=== PATIENT | male | born 1975 | race Hispanic/Latino ===

== ENCOUNTER 2017-02-18 20:01 | Emergency (ER) | payer MEDICAID ==
[2017-02-18 20:18] VITALS: BMI 32.5
[2017-02-18 20:23] VITALS: RESP 20; TEMP 98.2; O2SAT 98
[2017-02-18] MEDS ORDERED: Sodium Chloride 0.9% 1,000 ML IV STA (20:49)
--- NOTE | 2017-02-18 21:07 | ED PDOC ---
Arrival/HPI - General Chief Complaint: Back Pain Time Seen by Provider: 02/18/17 20:26 Historian: Patient - History of Present Illness Narrative History of Present Illness (Text): 02/18/17 21:00 Aubrey Cornell is a 40 year old male, with a history of alcohol abuse and heroine use, presents to the emergency department complaining of lower back pain radiating to the right leg. Patient states the symptoms began this evening. He notes there is discomfort when ambulating, but denies any trauma. Patient also states his right leg near his lower calf felt numb with a burning sensation. Patient denies fall, chest pain, shortness of breath, headache, fever , chills, cough, nausea, vomiting, diarrhea, bowel or bladder incontinence/ retention, hematuria or dysuria. Time/Duration: 1-3 hours Symptom Onset: Sudden Symptom Course: Unchanged Quality: Burning, Other (numbness on lower calf) Activities at Onset: Light Modifying Factors (Text): discomfort when ambulating Context: Sitting Associated Symptoms (Text): numbness on leg Past Medical History - Provider Review Nursing Documentation Reviewed: Yes - Infectious Disease Hx of Infectious Diseases: None - Cardiac Hx Cardiac Disorders: No - Pulmonary Hx Respiratory Disorders: No - Neurological Hx Neurological Disorder: No - HEENT Hx HEENT Disorder: No - Renal Hx Renal Disorder: No - Endocrine/Metabolic Hx Endocrine Disorders: No - Hematological/Oncological Hx Blood Disorders: No - Integumentary Hx Dermatological Disorder: No - Musculoskeletal/Rheumatological Hx Musculoskeletal Disorders: Yes Hx Back Pain: Yes - Gastrointestinal Hx Gastrointestinal Disorders: No - Genitourinary/Gynecological Hx Genitourinary Disorders: No - Psychiatric Hx Psychophysiologic Disorder: No Hx Substance Use: No - Surgical History Hx Cholecystectomy: Yes (2009) - Anesthesia Hx Anesthesia: Yes Hx Anesthesia Reactions: No Hx Malignant Hyperthermia: No Family/Social History - Physician Review Nursing Documentation Reviewed: Yes Family/Social History: Unknown Family HX Smoking Status: Heavy Smoker > 10 Cigarettes Daily Hx Alcohol Use: Yes Frequency of alcohol use: Socially Hx Substance Use: No Allergies/Home Meds Allergies/Adverse Reactions: Allergies No Known Allergies Allergy (Verified 02/18/17 20:18) Review of Systems - Physician Review All systems were reviewed & negative as marked: Yes - Review of Systems Constitutional: absent: Fevers Respiratory: absent: SOB Cardiovascular: absent: Chest Pain Gastrointestinal: absent: Abdominal Pain Musculoskeletal: Back Pain, Other (radiates to right leg) Neurological: absent: Headache Physical Exam Vital Signs Temp Pulse Resp BP Pulse Ox 02/19/17 00:45 89 20 137/82 98 02/18/17 20:21 98.2 F 83 20 146/96 H 98 Temperature: Afebrile Blood Pressure: Hypertensive Pulse: Regular Respiratory Rate: Normal Appearance: Positive for: Well-Appearing, Non-Toxic, Comfortable Pain Distress: None Mental Status: Positive for: Alert and Oriented X 3 - Systems Exam Head: Present: Atraumatic, Normocephalic Pupils: Present: PERRL Extroacular Muscles: Present: EOMI Conjunctiva: Present: Normal Mouth: Present: Moist Mucous Membranes Neck: Present: Normal Range of Motion Respiratory/Chest: Present: Clear to Auscultation, Good Air Exchange. No: Respiratory Distress, Accessory Muscle Use Cardiovascular: Present: Regular Rate and Rhythm, Normal S1, S2. No: Murmurs Abdomen: Present: Normal Bowel Sounds, Other (soft non-tender). No: Tenderness , Distention, Peritoneal Signs Back: Present: Normal Inspection, Pain with Leg Raise (lower back discomfort with right leg raising). No: CVA Tenderness, Midline Tenderness, Paraspinal Tenderness Upper Extremity: Present: Normal Inspection. No: Cyanosis, Edema Lower Extremity: Present: Normal Inspection, NORMAL PULSES, Neurovascularly Intact. No: Edema, CALF TENDERNESS, Brittany's Sign Neurological: Present: GCS=15, CN II-XII Intact, Speech Normal, Motor Func Grossly Intact, Normal Sensory Function Skin: Present: Warm, Dry, Normal Color. No: Rashes Psychiatric: Present: Alert, Oriented x 3, Normal Insight, Normal Concentration Medical Decision Making ED Course and Treatment: 02/18/17 21:00 Impression: 41 year old male with lower back pain that radiates down the right leg. Plan: -- CT Lumbar Spine -- Ultrasound -- Labs -- Toradol and Sodium Chloride -- Reassess and disposition Progress Notes: 02/18/17 21:20 Ultrasound Lower Extremity: Creator : Xander Scott MD FINDINGS: The visualized deep venous systems of both lower extremities are sonographically normal and compressible. Normal wave forms and augmentation are seen. There is no sonographic evidence for deep venous thrombosis in the visualized segments of both lower extremities. IMPRESSION: No sonographic evidence for deep venous thrombosis in the visualized segments of both lower extremities. 02/19/17 00:20 CT Lumbar Spine With Intravenous Contrast FINDINGS: Vertebrae: Unremarkable. No acute fracture. Discs/spinal canal/neural foramina: A broad-based disc protrusion is identified at the level L3/L4, with mass effect on both the spinal canal and bilateral neural foramen (right greater than left). A right paracentral disc protrusion is identified at the level of L4/L5, with mass effect on both the spinal canal and bilateral neural foramen (right greater than left) Soft tissues: Unremarkable. IMPRESSION: Degenerative disease at the levels of L3/L4 and L4/L5, as detailed above. - Lab Interpretations Lab Results: 02/18/17 22:06 02/18/17 22:06 Lab Results 02/18/17 22:06: Sodium 141, Potassium 4.2, Chloride 99, Carbon Dioxide 31, Anion Gap 15, BUN 11, Creatinine 0.9, Est GFR ( Amer) > 60, Est GFR (Non- Af Amer) > 60, Random Glucose 90, Calcium 9.7 02/18/17 22:06: WBC 14.5 H, RBC 4.68, Hgb 14.7, Hct 42.0, MCV 89.7, MCH 31.4, MCHC 35.0, RDW 13.2, Plt Count 282, MPV 9.3 I have reviewed the lab results: Yes - RAD Interpretation Radiology Orders: 02/18/17 20:46 DUPLEX LOWER EXTRM VEIN BILAT [US] Stat 02/18/17 20:47 LUMBAR SPINE W/CONTRAST [CT] Stat Dance Coach: Radiologist - Medication Orders Current Medication Orders: Discontinued Medications Sodium Chloride (Sodium Chloride 0.9%) 1,000 mls @ 999 mls/hr IV .Q1H1M STA Stop: 02/18/17 21:49 Last Admin: 02/18/17 21:20 Dose: 999 mls/hr Iohexol (Omnipaque 350 100 Ml) Confirm Administered Dose 350 mg .ROUTE .STK-MED ONE Stop: 02/18/17 22:47 Ketorolac Tromethamine (Toradol) 30 mg IVP ONCE ONE Stop: 02/18/17 20:50 Last Admin: 02/18/17 21:20 Dose: 30 mg - Scribe Statement The provider has reviewed the documentation as recorded by the Scribe 02/18/2017 Yesica Rasmussen Attestation: All medical record entries made by the Scribe were at my direction and personally dictated by me. I have reviewed the chart and agree that the record accurately reflects my personal performance of the history, physical exam, medical decision making, and the department course for this patient. I have also personally directed, reviewed, and agree with the discharge instructions and disposition. Disposition/Present on Arrival - Present on Arrival Any Indicators Present on Arrival: No History of DVT/PE: No History of Uncontrolled Diabetes: No Urinary Catheter: No History of Decub. Ulcer: No History Surgical Site Infection Following: None - Disposition Have Diagnosis and Disposition been Completed?: Yes Diagnosis: Lumbar disc herniation with radiculopathy Disposition: HOME/ ROUTINE Disposition Time: 00:41 Patient Plan: Discharge Condition: GOOD Discharge Instructions (ExitCare): Lumbar Disc Herniation (ED), Lumbar Radiculopathy (ED), Degenerative Disc Disease (ED) Additional Instructions: Rest/no strenuous physical activity/medication as prescribed/follow up with your doctor this week/any worsening symptoms return to the emergency room Prescriptions: Cyclobenzaprine [Cyclobenzaprine HCl] 10 mg PO TID PRN #15 tab PRN Reason: Muscle Spasm Naproxen [Naprosyn] 500 mg PO BID PRN #14 tab PRN Reason: Pain Referrals: PCP,NO [Primary Care Provider] - Follow up with primary [facility] [Outside] - Follow up with primary Gage Simmons MD [Staff Provider] - Follow up with primary Salvador Caruso MD [Staff Provider] - Follow up with primary Forms: [employer] ([place]inese), SCHOOL NOTE
--- NOTE | 2017-02-18 21:15 | US ---
HISTORY: Leg pain and swelling. Evaluate for DVT PHYSICIAN(S): Xander Mendieta MD. TECHNIQUE: Duplex sonography and color-flow Doppler with graded compression were used to evaluate the deep venous systems of both lower extremities. FINDINGS: The visualized deep venous systems of both lower extremities are sonographically normal and compressible. Normal wave forms and augmentation are seen. There is no sonographic evidence for deep venous thrombosis in the visualized segments of both lower extremities. IMPRESSION: No sonographic evidence for deep venous thrombosis in the visualized segments of both lower extremities.
[2017-02-18 22:13] LABS: HEMOGLOBIN 14.7 g/dL (14.0-18.0); MEAN CELL VOLUME 89.7 fl (80.0-105.0); MEAN CORPUSCULAR HEMOGLOBIN 31.4 pg (25.0-35.0); MEAN PLATELET VOLUME 9.3 fl (7.0-11.0); RBC 4.68 10^6/uL (3.5-6.1); RED CELL DISTRIBUTION WIDTH 13.2 % (11.5-14.5); WHITE BLOOD COUNT 14.5 10^3/ul (4.5-11.0)
[2017-02-18 22:22] LABS: BLOOD UREA NITROGEN 11 mg/dL (7-21); CALCIUM 9.7 mg/dL (8.4-10.5); GFR AFRICAN-AMERICAN > 60; GFR NON-AFRICAN AMERICAN > 60
[2017-02-18] MEDS ORDERED: Iohexol 350 MG/100 ML VIAL ONE (22:46)
--- NOTE | 2017-02-19 00:16 | CT ---
EXAM: CT Lumbar Spine With Intravenous Contrast CLINICAL HISTORY: 41 years old, male; Pain; Low back pain TECHNIQUE: Axial computed tomography images of the lumbar spine with intravenous contrast. This CT exam was performed using one or more of the following dose reduction techniques: automated exposure control, adjustment of the mA and/or kV according to patient size, and/or use of iterative reconstruction technique. Coronal and sagittal reformatted images were created and reviewed. CONTRAST: 100 mL of OMNI 350 administered intravenously. COMPARISON: No relevant prior studies available. FINDINGS: Vertebrae: Unremarkable. No acute fracture. Discs/spinal canal/neural foramina: A broad-based disc protrusion is identified at the level L3/L4, with mass effect on both the spinal canal and bilateral neural foramen (right greater than left). A right paracentral disc protrusion is identified at the level of L4/L5, with mass effect on both the spinal canal and bilateral neural foramen (right greater than left) Soft tissues: Unremarkable. IMPRESSION: Degenerative disease at the levels of L3/L4 and L4/L5, as detailed above.
[2017-02-19 02:30] VITALS: BP 137/82; PULSE 89
== END 2017-02-19 00:45 | disposition home or self-care (01) ==
LOC: ED 20:01
DX: M51.16 Intervertebral disc disorders with radiculopathy, lumbar region (principal); F17.210 Nicotine dependence, cigarettes, uncomplicated
CPT/HCPCS: 72132; 80048; 85027; 93970; 96374; 99283; J1885; J7040; Q9967